=== PATIENT | male | born 1980 | race African-American/Black ===

== ENCOUNTER 2017-04-29 23:44 | Inpatient (IN) | payer OTHER ==
[~2017-04-29] VITALS: Ht 190.5 cm; Wt 117.9 kg
--- NOTE | ~2017-04-29 | EKG ---
[address] [place] [address] ELECTROCARDIOGRAM REPORT Name: CHARLEY BROWN Room #: 170-6 ADM IN M.R.#: [id number] Admission: 04/30/17 Attend Phys: Jv Lewis MD Discharge: Date of : 84 Report #: [id number] THIS REPORT FOR: //name// [facility] ED Test Date: 2017-04-29 Test Time: 23:46:40 Pat Name: CHARLEY BROWN Department: Room: 170 Gender: M [employer] Engineer: AMALIA KNOX FEMALE : 1980 Requested By: Familia Gann Order Number: [id number] MD: Papi Ardon Measurements Intervals [place] Rate: 135 P: 74 ND: 105 QRS: 78 QRSD: 92 T: 52 QT: 411 QTc: 617 Interpretive Statements Sinus tachycardia Borderline ST depression, diffuse leads Prolonged QT interval No previous ECG available for comparison Electronically Signed On 04-30-2017 7:51:53 IMAGING ADMINISTRATOR by Papi Ardon [email or web address] <ELECTRONICALLY SIGNED> By: Papi Ardon MD, [facility] 04/30/17 [id number] Papi Ardon MD, FACC /EPI
[2017-04-29 23:58] VITALS: BP 132/101
[2017-04-30] LABS: ABSOLUTE NEUTROPHILS 9.6 thou/uL (1.4-8.2); BASOPHILS 0.4 % (0.0-2.0); EOSINOPHILS 0.5 % (0.0-3.0); HEMATOCRIT 46.4 % (42.0-52.0); HEMOGLOBIN 15.7 gm/dL (14.0-18.0); LYMPHOCYTES 32.7 % (24.0-44.0); MCH 32.9 pg (26.0-34.0); MCHC 33.9 g/dL (28.0-37.0); MCV 97.1 fL (80.0-100.0); MONOCYTES 2.6 % (1.0-8.0); POLYS 63.8 % (36.0-66.0); RBC 4.78 mil/uL (4.50-6.00); WBC 15.1 thou/uL (4.0-11.0)
[2017-04-30 00:04] LABS: ANION GAP 19 mmol/L (7-16); BUN 14 mg/dL (7-18); CALCIUM 9.1 mg/dL (8.5-10.1); CHLORIDE 104 mmol/L (98-107); CO2 20 mmol/L (21-32); CREATININE 1.8 mg/dL (0.7-1.3); GLUCOSE 175 mg/dL (74-106); SODIUM 143 mmol/L (136-145)
[2017-04-30 00:06] LABS: POTASSIUM 2.9 mmol/L (3.5-5.1)
[2017-04-30 00:14] LABS: APTT 31.3 Seconds (24.5-32.8); PROTIME 10.1 Seconds (9.3-11.4)
[2017-04-30 00:15] LABS: SGOT 44 U/L (15-37); TOTAL BILIRUBIN 0.3 mg/dL (<0.1-1.0)
[2017-04-30 00:16] LABS: ALBUMIN 3.6 g/dL (3.4-5.0); MAGNESIUM 2.1 mg/dL (1.8-2.4); SGPT 68 U/L (30-65); TOTAL PROTEIN 7.1 g/dL (6.4-8.2); TROPONIN-I < 0.04 ng/mL (<0.06)
[2017-04-30 01:22] LABS: LARGE PLATELETS SEVERAL; PLATELET COUNT 388 thou/uL (150-400)
[2017-04-30 01:36] LABS: AMP/METHAMP POSITIVE (Negative); BARBITURATES Negative (Negative); BENZODIAZEPINES Negative (Negative); COCAINE Negative (Negative); METHADONE Negative (Negative); OPIATES POSITIVE (Negative); PCP POSITIVE (Negative)
[2017-04-30 03:23] LABS: URINE BILIRUBIN NEGATIVE (Negative); URINE BLOOD NEGATIVE (Negative); URINE CLARITY CLEAR; URINE COLOR YELLOW; URINE GLUCOSE-RANDOM* TRACE (Negative); URINE KETONES NEGATIVE (Negative); URINE LEUKOCYTES-REFLEX NEGATIVE (Negative); URINE PROTEIN (DIPSTICK) NEGATIVE (Negative); URINE UROBILINOGEN 0.2 E.U./dl (0.2-1.0)
[2017-04-30 03:25] LABS: URINE NITRITE-REFLEX POSITIVE (Negative)
[2017-04-30 03:40] LABS: SQUAMOUS 0-3 Few /LPF (0-3)
[2017-04-30 03:41] LABS: BACTERIA-REFLEX >30 Many /HPF (None Seen); CRYSTALS None Seen /LPF (None Seen); HYALINE CASTS 0-3 Few /LPF (None Seen); URINE RBC None Seen /HPF (0-2); URINE WBC-REFLEX 6-15 Few /HPF (0-5)
[2017-04-30 05:06] LABS: HEMATOCRIT 45.8 % (42.0-52.0); HEMOGLOBIN 15.3 gm/dL (14.0-18.0); MCH 32.6 pg (26.0-34.0); MCHC 33.5 g/dL (28.0-37.0); MCV 97.4 fL (80.0-100.0); RBC 4.7 mil/uL (4.50-6.00); RDW 14.3 % (10.5-14.5)
[2017-04-30 05:27] LABS: ALBUMIN 3.6 g/dL (3.4-5.0); CALCIUM 8.8 mg/dL (8.5-10.1); CREATININE 1.4 mg/dL (0.7-1.3); TOTAL BILIRUBIN 0.3 mg/dL (<0.1-1.0); TOTAL PROTEIN 7.2 g/dL (6.4-8.2)
[2017-04-30 05:35] LABS: POTASSIUM 3.9 mmol/L (3.5-5.1)
[2017-04-30 08:35] VITALS: BP 118/76
[2017-04-30 08:53] VITALS: BP 133/90
[2017-04-30 12:04] VITALS: BP 137/89
[2017-04-30 17:13] VITALS: BP 140/78
[2017-04-30 19:32] VITALS: BP 133/92
[2017-05-01 00:24] VITALS: BP 125/92
[2017-05-01 03:58] VITALS: BP 137/93
[2017-05-01 08:09] VITALS: BP 136/96
[2017-05-01 09:15] LABS: ABSOLUTE NEUTROPHILS 3.5 thou/uL (1.4-8.2); BASOPHILS 0.9 % (0.0-2.0); EOSINOPHILS 4.9 % (0.0-3.0); HEMOGLOBIN 14.4 gm/dL (14.0-18.0); LYMPHOCYTES 32.4 % (24.0-44.0); MCHC 34.3 g/dL (28.0-37.0); MCV 96.4 fL (80.0-100.0); MONOCYTES 5.2 % (1.0-8.0); PLATELET COUNT 302 thou/uL (150-400); POLYS 56.6 % (36.0-66.0); RBC 4.36 mil/uL (4.50-6.00); WBC 6.2 thou/uL (4.0-11.0)
[2017-05-01 09:24] LABS: CREATININE 1.4 mg/dL (0.7-1.3); POTASSIUM 4.1 mmol/L (3.5-5.1)
[2017-05-01 11:07] VITALS: BP 132/90
[2017-05-01 11:30] VITALS: BP 160/101
[2017-05-01] MEDS ORDERED: CIPRO500 MG PO (14:00)
[2017-05-01] MEDS ORDERED: PROTONIX40 M1 PO (14:04)
[2017-05-01 15:00] VITALS: BP 160/101
== END 2017-05-01 18:00 | disposition home or self-care (01) | DRG 683 ==
LOC: ER 23:44 → 3W 04-30 01:51 → EROBS 04-30 01:51 → 3W 04-30 08:17
PROVIDERS: Emergency Medicine; Hospitalist; Nurse Practitioner Family
DX: N17.9 Acute kidney failure, unspecified (principal); E87.2 Acidosis; F12.90 Cannabis use, unspecified, uncomplicated; J45.909 Unspecified asthma, uncomplicated; F17.210 Nicotine dependence, cigarettes, uncomplicated; E87.6 Hypokalemia; R73.9 Hyperglycemia, unspecified; Z79.899 Other long term (current) drug therapy
CPT/HCPCS: 10879